=== PATIENT | male | born 1995 | race Caucasian/White ===

== ENCOUNTER → 2016-11-03 10:23 | Outpatient (CLI) | payer MEDICAID | END | disposition home or self-care (01) | LOC: D.RAD 10:23 | DX: M41.9 Scoliosis, unspecified (principal) ==

== ENCOUNTER 2019-09-27 12:35 | Emergency (ER) | payer MEDICAID ==
[2019-09-27 13:31] VITALS: BP 122/76
== END 2019-09-27 13:32 | disposition home or self-care (01) ==
LOC: D.ER 12:35
DX: Z43.2 Encounter for attention to ileostomy (principal); I10 Essential (primary) hypertension